=== PATIENT | female | born 1955 | race Two or more races ===

== ENCOUNTER 2023-09-30 20:22 | Emergency (ER) | payer OTHER ==
[~2023-09-30] VITALS: Ht 167.6 cm; Wt 65.8 kg
[2023-09-30] MEDS ORDERED: KETO10TA2 (20:37)
[2023-09-30] MEDS ORDERED: LIPITOR40 M1 (20:37)
[2023-09-30] MEDS ORDERED: ORPHENADRINE CITRATE 30 MG/ML AMPUL IM ONE (23:15)
[2023-09-30] MEDS ORDERED: KETOROLAC TROMETHAMINE 60 MG VIAL IM ONE (23:15)
== END 2023-09-30 23:59 | disposition home or self-care (01) ==
LOC: ER 20:22
DX: M54.59 Other low back pain (principal)
CPT/HCPCS: 96372; 99282; J1885; J2360